=== PATIENT | female | born 1965 | race Caucasian/White ===

== ENCOUNTER 2016-09-12 00:46 | Emergency (ER) | payer SELFPAY ==
--- NOTE | ~2016-09-12 | CR63 ---
[facility] A Service of [facility] & [facility] RADIOLOGY TEXT RESULTS PATIENT: SANDER MAGDALENO LOCATION: SED : 69 UNIT #: [id number] AGE: [address]: William Reynolds MD SEX: F ORDER DR: [id number] [place] [id number] MR#: [id number] Acc #: [id number] NAME: SANDER MAGDALENO : 1965 SEX: F STUDY DATE/TIME: 09/12/2016 0:23 UNIT: SED ROOM: STUDY DESCRIPTION: CR Chest 2 View Attending Physician: William Reynolds M.D. Ordering Physician: William Reynolds M.D. Primary Care Physician: Juliana Perkins A.P.R.N. MEDICAL IMAGING REPORT This report is preliminary unless electronic signature is present. EXAM Two-view chest HISTORY Cough for 2 weeks. History of anxiety. FINDINGS PA and lateral examination of the chest upright shows a good expansion of the parenchyma with a normal distribution of the pulmonary vascularity. There is no indication of congestion, effusion, infiltrate, tumor, or nodular density. The pleural reflections and diaphragmatic contours are normal. The cardiac silhouette and mediastinal anatomy is within normal limits. IMPRESSION Normal chest. Dictated by... Josselyn Pimentel M.D. THIS IS AN ELECTRONICALLY VERIFIED REPORT Josselyn Pimentel M.D. at 09/12/2016 10:05 PM Lauro TD: 09/12/2016 11:14 JOB #: [id number] MEDICAL IMAGING REPORT Page 1 of 1
[~2016-09-12 00:46] MED LIST: ATARAX PO; DEXILANT30 MG; FLEXERIL10 MG PO; FLUOXETINE HCL10 M1; IBUPROFEN800 MG; PREDNISONE10 MG/DOSE PO; PRILOSEC; VOLTAREN75 MG PO
== END 2016-09-12 01:20 | disposition home or self-care (01) ==
LOC: SED 00:46
DX: R11.2 Nausea with vomiting, unspecified (principal); R19.7 Diarrhea, unspecified; R51 Headache; F41.9 Anxiety disorder, unspecified; F17.200 Nicotine dependence, unspecified, uncomplicated; Z90.710 Acquired absence of both cervix and uterus
CPT/HCPCS: 71020; 96361; 96374; 96375; 99284; J0780; J1200; J1885